=== PATIENT | female | born 1990 | race Caucasian/White ===

== ENCOUNTER 2020-05-28 17:06 | Emergency (ER) | payer OTHER, SELFPAY ==
--- NOTE | 2020-05-28 17:11 | PC.NURSE ---
Patient left without being triaged. Patient states she was released from [facility] yesterday with positive covid diagnosis and wants to be admitted. Patient informed that she will have to be evaluated by the physician and go from there, no guarantee for admission. Patient then leaves with her mother.
== END 2020-05-28 17:11 | disposition left against medical advice (07) ==
DX: Z53.21 Procedure and treatment not carried out due to patient leaving prior to being seen by health care provider (principal)
CPT/HCPCS: 99199